=== PATIENT | female | born 1930 | race Caucasian/White ===

== ENCOUNTER 2017-07-31 14:06 | Emergency (ER) | payer OTHER ==
[~2017-07-31] VITALS: Ht 129.5 cm; Wt 38.6 kg
[~2017-07-31 14:06] MED LIST: BENADRYL50 MG; DALMANE30 MG; PEPCID20 MG PO; TOPROL XL50 M1; ZOCOR5 MG
[2017-07-31] MEDS ORDERED: PYRIDIUM100 MG PO (18:42)
== END 2017-07-31 19:08 | disposition home or self-care (01) ==
LOC: ER 14:06
DX: N39.0 Urinary tract infection, site not specified (principal); R30.0 Dysuria; B96.20 Unspecified Escherichia coli [E. coli] as the cause of diseases classified elsewhere

== ENCOUNTER 2019-01-24 10:45 | Emergency (ER) | payer OTHER ==
[~2019-01-24] VITALS: Ht 142.2 cm; Wt 35.4 kg
[~2019-01-24 10:45] MED LIST changes: +PYRIDIUM100 MG PO
== END 2019-01-24 12:26 | disposition home or self-care (01) ==
LOC: ER 10:45
DX: L03.031 Cellulitis of right toe (principal)

== ENCOUNTER 2020-02-17 08:24 | Inpatient (IN) | payer OTHER ==
[~2020-02-17] VITALS: Ht 142.2 cm; Wt 34.0 kg
== END 2020-02-19 14:37 | disposition home or self-care (01) | DRG 812 ==
LOC: MEDJ 08:24 → MEDI 08:24 → MEDJ 08:31
PROVIDERS: ADMIT Internal Medicine Cardiovascular Disease; ATTEND Internal Medicine Cardiovascular Disease
PROC: 30233N1 Transfusion of Nonautologous Red Blood Cells into Peripheral Vein, Percutaneous Approach (ICD-10-PCS; principal; 2020-02-17)
DX: D64.9 Anemia, unspecified (principal); E03.9 Hypothyroidism, unspecified; I10 Essential (primary) hypertension; J44.9 Chronic obstructive pulmonary disease, unspecified